=== PATIENT | female | born 1995 | race Caucasian/White ===

== ENCOUNTER 2025-03-28 07:52 | Inpatient (IN) ==
[2025-03-28] MEDS ORDERED: LIDOCAINE 1% LOCAL 20 ML VIAL INFIL PRN (07:59)
[2025-03-28] MEDS ORDERED: CALCIUM CARBONATE 500 MG CHEWABLE TAB PO PRN (07:59)
[2025-03-28] MEDS ORDERED: ACETAMINOPHEN 325 MG TAB PO PRN (07:59)
--- NOTE | 2025-03-28 08:41 | History & Physical Report ---
Date of Service March 28, 2025 Assessment & Plan (1) Chronic hypertension during , antepartum: Plan: 29-year-old G1, P0 currently at 38 weeks 2 days gestational age presents for induction of labor. Will start with oxytocin per regular protocol. Vitals within normal limits will continue to monitor. GBS negative. (2) Obesity affecting : (3) Supervision of normal first : (4) Pulmonary stenosis: Admission and Anticipated Discharge Date Admission Date: March 28, 2025 History of Present Illness Primary Care Provider: Flaco Roth 29-year-old G1, P0 currently at 38 weeks 2 days gestational age presents for induction of labor. plans and complicating factors: Patient with Pulmonary Stenosis [place]22-24 weeks[place] [facility] [place] [facility] 10[place] [facility] [place] *Maternal echo September-isolated pulmonary stenosis *cards states should not cause immediate problems in *recommend monitoring for swelling and BP; will follow with cards during *echo 02/22 stable. Hepatitis B Non Immune *Recommend Hepatitis B Vaccine Obesity (BMI 40 and higher @ beginning of ) (PER [facility]) *Baby ASA daily *Anatomy US at [facility] - f/u completed 12/21 *Growth US Q4wk @ 24wks lga at 32 weeks 35 weeks efw 83% *Baseline Preeclampsia labs and urine protein assessment *1st trimester 1hr gtt testing - passed *Twice Weekly NST's @ 34wks. CHTN-- Not on meds *Baby ASA daily start 12-28 wks, continue until delivery *wkly NST's @32wks and twice wkly @36 wks *Serial Growth US @ 24 (doppler only if abnml) *Baseline 24hr urine (additioinal PRN) *weekly JAIR's @ 32wk(If on Meds)) *Deliver [id number] (Not on Meds)--> IOL 03/28/25 OB Labs: Blood Type O Positive 09/10/24 Antibody Screen NEGATIVE 09/10/24 Hgb 15.1 g/dl (12.0-16.0) 03/07/25 Hct 42.4 % (37.0-47.0) 03/07/25 MCV 87.4 fL (80.0-100.0) 03/07/25 Plt Count 271 K/uL (130-400) 03/07/25 Rubella IgG Antibody Immune (Immune) 09/10/24 Treponema pallidum Ab Negative (Negative) 01/18/25 Hep Bs Antigen Negative (Negative) 09/10/24 Hepatitis C Antibody Negative (Negative) 09/10/24 HIV 1&2 Ab/P24 Ag 4thGn Negative (Negative) 09/10/24 Glucose 1 Hr 50 gm 142 mg/dl (70-130) H 01/18/25 Maternal Serum AFP 36.1 ng/mL 10/29/24 OB Optional Labs: Chlamydia trachomatis RNA Not Detected (NotDetected) 09/10/24 Neisseria gonorrhoeae RNA Not Detected (NotDetected) 09/10/24 Alpha Fetoprotein Triple Screen SEE NOTE 10/29/24 Labs Reviewed: Horizon 14-negative--mln cfdna-low risk--mln Allergies Allergy/AdvReac Type Severity Reaction Status Date / Time No Known Drug Allergies Allergy Unknown Verified 03/28/25 08:03 Home Medications Medication Instructions Recorded Confirmed Type PNV no.[id number] 1 tab PO HS 09/03/24 03/28/25 History [ Gummies] doxylamine succinate [Unisom 0.5 tab PO HS 09/03/24 03/28/25 History (doxylamine)] pyridoxine (vitamin B6) 25 mg PO HS 09/03/24 03/28/25 History aspirin 81 mg tablet 81 mg PO DAILY 02/22/25 03/28/25 History ferrous sulfate 137 mg (45 mg 137 mg PO DAILY 02/22/25 03/28/25 History iron) tablet,extended release Patient History Medical History (Updated 03/28/25 @ 08:40 by Jaleel Selby MD) Chronic hypertension no meds Nonimmune to hepatitis B virus Pulmonary stenosis congenital; stable sees cardiology Varicella vaccination Migraine with aura Surgical History S/P wisdom tooth extraction Family History Denies family history of Ovarian cancer Myocardial infarction Breast cancer Colorectal cancer Uterine cancer Social History (Updated 03/07/25 @ 21:37 by Avelina Hugo RN) Smoking Status: Never smoker Do You Dip or Chew Tobacco: No; Hx Alcohol Use: No Hx Substance Use: No Preferred Language: Korean Beliefs That Will Affect Care: None marital status: marital status details: Traci Verdugo (31) [phone] Current Living Situation: Spouse Current Living Situation Comment: lives with spouse, dogs, cats-pt to wear gloves/mask current occupational status: employed 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 Feels Safe at Home: Yes caffeine: Yes Seatbelt Use: always Physical Exam Genitourinary: normal external appearance OB Exam Abdomen: + vertex Manu al OB Exam: + cervical dilation 4 cm, + cervical effacement 70% and + station high OB Exam Monitor Tracing: + external FHT monitor used, + external uterine monitor used, + category I and + normal FHT variability Results & Data Vital Signs (Past 12 Hours) Vital Signs Pulse BP 03/28/25 08:01 94 H 137/81 Coding Level of Care Code None Diagnoses Chronic hypertension during , antepartum O10.919 Obesity affecting in third trimester, unspecified obesity type O99.213 Trimester: third trimester Obesity type affecting : unspecified obesity Encounter for supervision of normal first in third trimester Z34.03 Trimester: third trimester Nonrheumatic pulmonary valve stenosis I37.0 Cardiac valve disease etiology: nonrheumatic (2) Obesity affecting Trimester: third trimester Obesity type affecting : unspecified obesity Qualified Code(s): O99.213 - Obesity complicating , third trimester (3) Supervision of normal first Trimester: third trimester Qualified Code(s): Z34.03 - Encounter for supervision of normal first , third trimester (4) Pulmonary stenosis Cardiac valve disease etiology: nonrheumatic Qualified Code(s): I37.0 - Nonrheumatic pulmonary valve stenosis
[2025-03-28 08:42] LABS: Hematocrit (blood only) 41.7 % (37.0-47.0); Hemoglobin 14.9 g/dl (12.0-16.0); Mean Corpuscular Hemoglobin 31.4 pg (25.0-34.0); Mean Corpuscular Volume 87.8 fL (80.0-100.0); Platelet Count 241 K/uL (130-400); RDW Standard Deviation 39.2 fL (36.4-46.3); Red Blood Count 4.75 M/uL (4.20-5.40); White Blood Count 13.13 K/ul (4.8-10.8)
[2025-03-28] MEDS: LACTATED RINGER'S 1,000 ML IV PRN (08:45)
[2025-03-28] MEDS: OXYTOCIN 30 UNITS/NSS 30 UNITS/500 ML BAG IV PRN (08:54)
[2025-03-28] MEDS ORDERED: NALOXONE HCL 1 MG in SODIUM CHLORIDE 0.9% 1,000 ML IV PRN (16:55)
[2025-03-28] MEDS ORDERED: NALBUPHINE HCL INJ 10 MG/ML AMP IV PRN (16:55)
[2025-03-28] MEDS ORDERED: NALOXONE HCL 0.4 MG/1 ML VIAL/CARP IV PRN (16:55)
[2025-03-28] MEDS ORDERED: diphenhydrAMINE 50 MG/ML VIAL IV PRN (16:55)
[2025-03-28] MEDS ORDERED: LIDOCAINE 2% MPF LOCAL 5 ML VIAL EPI PRN (16:55)
[2025-03-28] MEDS ORDERED: SODIUM CHLORIDE 0.9% PF INJ 10 ML VIAL EPI PRN (16:55)
[2025-03-28] MEDS ORDERED: ROPIVACAINE 0.5% PF 5 MG/ML 20 ML VIAL EPI PRN (16:55)
[2025-03-28] MEDS ORDERED: BUPIVACAINE 0.25% PF 30 ML VIAL EPI PRN (16:55)
--- NOTE | 2025-03-28 16:57 | Anesthesiology Consultation ---
Date of Service March 28, 2025 Assessment & Plan (1) Encounter for pre-operative examination: Chart Review Chart Review: Patient NOT seen in Pre Admission Testing and Acceptable Risk for Labor Epidural Consults Requested none History Height/Weight Height: 5 ft 9 in Weight: 131.36 kg Allergies Allergy/AdvReac Type Severity Reaction Status Date / Time No Known Drug Allergies Allergy Unknown Verified 03/28/25 08:03 Medications Home Medications Medication Instructions Recorded Confirmed Last Taken PNV no.[id number] 1 tab PO HS 09/03/24 03/28/25 03/27/25 [ Gummies] doxylamine succinate [Unisom 0.5 tab PO HS 09/03/24 03/28/25 03/27/25 (doxylamine)] pyridoxine (vitamin B6) 25 mg PO HS 09/03/24 03/28/25 03/27/25 aspirin 81 mg tablet 81 mg PO DAILY 02/22/25 03/28/25 03/27/25 ferrous sulfate 137 mg (45 mg 137 mg PO DAILY 02/22/25 03/28/25 03/27/25 iron) tablet,extended release Active Medications Generic Name Dose Route Start Last Admin Trade Name Freq PRN Reason Stop Dose Admin Lactated Ringer's 1,000 mls @ 125 mls/hr 03/28/25 07:59 03/28/25 17:13 Lr IV 03/30/25 07:58 Infused .Q8H PRN Infusion L&D Protocol Protocol Oxytocin 30 units in 500 mls @ 17 mls/hr 03/28/25 08:01 03/28/25 15:35 Pitocin 30 Units/Nss IV 03/30/25 08:00 1.14 units/hr .Q24H PRN 19 mls/hr Labor Induction/Augmentation Titration Protocol 1.02 UNITS/HR Past Medical History Medical History (Updated 03/28/25 @ 16:57 by Zach Cody MD) Encounter for pre-operative examination Chronic hypertension no meds 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 see cards note Exercise / Class Metabolic Activity II 4-5 Yardwork/Stairs/Walk up hill Past Family History Family History Denies family history of Ovarian cancer Myocardial infarction Breast cancer Colorectal cancer Uterine cancer Past Surgical History Surgical History S/P wisdom tooth extraction Past Anesthesia History No Hx of Anesthesia Complications and No Family Hx of Anesthesia Complications History of PONV No Hx of PONV and No Hx of Motion Sickness Social History Smoking Status: Never smoker Do You Dip or Chew Tobacco: No Hx Alcohol Use: No Hx Substance Use: No substance use type: does not use Physical Exam Vital Signs Last Vital Signs Temp 37.0 C 03/28/25 12:19 Pulse 86 03/28/25 17:17 Resp 18 03/28/25 15:45 BP 147/84 H 03/28/25 17:17 Pulse Ox 98 03/28/25 17:17 Testing Laboratory Results 03/28/25 08:10
[2025-03-28] MEDS: BUPIVACAINE 0.25% PF 30 ML VIAL EPI STA (17:15)
[2025-03-28] MEDS: SODIUM CHLORIDE 0.9% PF INJ 10 ML VIAL EPI STA (17:16)
[2025-03-28] MEDS: LIDOCAINE 2%/EPINEPHRINE 1:200,000 20 ML PF EPI STA (17:19)
[2025-03-28] MEDS: fentANYL 2 MCG/ML BUPIVacaine 0.125%-NSS 100ML BAG ONE (17:20)
[2025-03-28] MEDS: SODIUM CHLORIDE 0.9% PF INJ 10 ML VIAL ONE (17:20)
[2025-03-28] MEDS: BUPIVACAINE 0.25% PF 30 ML VIAL ONE (17:20)
[2025-03-28] MEDS: LIDOCAINE 2%/EPINEPHRINE 1:200,000 20 ML PF ONE (17:20)
[2025-03-28] MEDS: fentANYL 2 MCG/ML BUPIVacaine 0.125%-NSS 100ML BAG EPI PRN (17:23)
--- NOTE | 2025-03-29 01:15 | Communication Note ---
Date of Service: March 29, 2025 Pitocin restarted for receptor saturation as we reached 20 milliunits heart rate category 1
--- NOTE | 2025-03-29 04:48 | Communication Note ---
Date of Service: March 29, 2025 Around midnight nurse noticed adhesive pad around epidural was bloody. I replaced opsite and no active bleeding seen at epidural insertion site. rechecked at 5am and small amount of blood seen under opsite. pt has not had cervical check in quite some time so unsure of pt progress with labor. epidural working well. pt denied any history of bleeding disorder and platelets normal. will continue to monitor but if prolonged labor discussed possibility of replacing epidural at new level.
--- NOTE | 2025-03-29 07:21 | Labor Progress Brief Note ---
Date of Service March 29, 2025 Patient 4-5 centimeters artificial rupture membranes for clear fluid Pitocin was stopped and restarted for saturation resent patient comfortable although feeling nausea discussed slow progress however I do not think she has been adequate labor yet continue induction process Assessment & Plan Admission and Anticipated Discharge Date Admission Date: March 28, 2025 Results & Data Vital Signs (Past 12 Hours) Vital Signs Temp Pulse Resp BP Pulse Ox 03/29/25 07:17 86 136/80 96 03/29/25 07:12 88 95 03/29/25 07:07 96 H 99 03/29/25 07:02 95 03/29/25 07:02 91 H 03/29/25 07:02 89 139/83 03/29/25 06:57 85 95 03/29/25 06:52 97 H 95 03/29/25 06:47 90 138/78 94 03/29/25 06:42 97 H 94 03/29/25 06:37 98 H 95 03/29/25 06:32 96 03/29/25 06:32 91 H 03/29/25 06:32 94 H 142/83 H 03/29/25 06:30 18 03/29/25 06:30 18 03/29/25 06:27 103 H 96 03/29/25 06:22 86 95 03/29/25 06:17 90 144/87 H 97 03/29/25 06:12 97 H 96 03/29/25 06:07 89 96 03/29/25 06:02 96 03/29/25 06:02 75 03/29/25 06:02 74 159/81 H 03/29/25 05:57 83 96 03/29/25 05:52 96 H 96 03/29/25 05:47 101 H 143/76 H 96 03/29/25 05:42 66 95 03/29/25 05:37 70 96 03/29/25 05:32 97 03/29/25 05:32 89 03/29/25 05:32 86 151/88 H 03/29/25 05:30 18 03/29/25 05:30 18 03/29/25 05:27 73 95 03/29/25 05:22 69 96 03/29/25 05:18 68 161/80 H 03/29/25 05:17 69 96 03/29/25 05:12 90 97 03/29/25 05:07 73 97 03/29/25 05:02 68 98 03/29/25 05:00 18 03/29/25 05:00 18 03/29/25 04:57 73 95 03/29/25 04:52 73 96 03/29/25 04:48 70 156/84 H 03/29/25 04:47 71 98 03/29/25 04:42 79 98 03/29/25 04:37 75 98 03/29/25 04:32 90 138/71 98 03/29/25 04:30 16 03/29/25 04:30 16 03/29/25 04:27 67 93 03/29/25 04:22 62 94 03/29/25 04:17 95 03/29/25 04:17 59 L 03/29/25 04:17 63 139/71 03/29/25 04:12 65 95 03/29/25 04:07 66 95 03/29/25 04:02 78 146/75 H 96 03/29/25 03:57 76 94 03/29/25 03:52 77 98 03/29/25 03:47 96 03/29/25 03:47 72 03/29/25 03:47 75 150/79 H 03/29/25 03:42 71 96 03/29/25 03:37 65 94 03/29/25 03:32 95 03/29/25 03:32 70 03/29/25 03:32 68 156/81 H 03/29/25 03:30 98.1 F 03/29/25 03:27 94 H 97 03/29/25 03:22 72 94 03/29/25 03:17 95 03/29/25 03:17 73 03/29/25 03:17 74 142/85 H 03/29/25 03:12 69 96 03/29/25 03:07 76 96 03/29/25 03:02 96 03/29/25 03:02 72 03/29/25 03:02 69 153/82 H 03/29/25 03:00 16 03/29/25 03:00 16 03/29/25 02:57 71 95 03/29/25 02:52 75 94 03/29/25 02:47 95 03/29/25 02:47 81 03/29/25 02:47 77 149/81 H 07/22/25 02:42 82 94 03/29/25 02:37 89 95 03/29/25 02:32 94 03/29/25 02:32 93 H 03/29/25 02:32 78 156/89 H 03/29/25 02:27 87 94 03/29/25 02:22 92 H 95 03/29/25 02:17 88 138/78 96 03/29/25 02:12 90 95 03/29/25 02:07 90 96 03/29/25 02:02 96 03/29/25 02:02 91 H 03/29/25 02:02 77 148/79 H 03/29/25 02:00 18 03/29/25 02:00 18 03/29/25 01:57 92 H 97 03/29/25 01:52 90 98 03/29/25 01:47 84 146/88 H 98 03/29/25 01:42 87 99 03/29/25 01:37 71 97 03/29/25 01:32 95 03/29/25 01:32 69 03/29/25 01:32 68 148/75 H 03/29/25 01:30 18 03/29/25 01:30 18 03/29/25 01:27 72 97 03/29/25 01:22 67 96 03/29/25 01:17 67 145/80 H 97 03/29/25 01:12 65 95 03/29/25 01:07 71 94 03/29/25 01:02 99 H 98 03/29/25 01:00 18 03/29/25 01:00 18 03/29/25 00:57 88 97 03/29/25 00:52 77 95 03/29/25 00:47 81 113/63 98 03/29/25 00:42 82 98 03/29/25 00:37 83 98 03/29/25 00:34 94 H 128/87 03/29/25 00:32 84 149/102 H 99 03/29/25 00:27 68 98 03/29/25 00:22 69 97 03/29/25 00:18 66 127/65 03/29/25 00:17 68 99 03/29/25 00:12 72 99 03/29/25 00:07 85 98 03/29/25 00:03 83 80 L 03/29/25 00:02 83 137/70 87 L 03/28/25 23:57 80 99 03/28/25 23:54 77 83 L 03/28/25 23:52 80 87 L 03/28/25 23:47 100 03/28/25 23:47 74 03/28/25 23:47 80 127/74 03/28/25 23:44 97 H 85 L 03/28/25 23:42 74 100 03/28/25 23:37 76 96 03/28/25 23:32 64 135/96 100 03/28/25 23:31 71 83 L 03/28/25 23:30 18 03/28/25 23:30 98.2 F 18 03/28/25 23:27 56 L 100 03/28/25 23:22 61 99 03/28/25 23:17 58 L 134/64 100 03/28/25 23:12 56 L 100 03/28/25 23:07 59 L 100 03/28/25 23:05 62 86 L 03/28/25 23:02 69 128/65 100 03/28/25 23:00 18 03/28/25 23:00 18 03/28/25 22:57 61 100 03/28/25 22:52 70 100 03/28/25 22:48 64 128/68 03/28/25 22:47 62 96 03/28/25 22:42 95 03/28/25 22:42 75 03/28/25 22:42 75 88 L 03/28/25 22:37 71 100 03/28/25 22:33 59 L 147/81 H 03/28/25 22:32 58 L 100 03/28/25 22:30 18 03/28/25 22:30 18 03/28/25 22:27 59 L 100 03/28/25 22:22 60 100 03/28/25 22:21 61 90 03/28/25 22:17 100 03/28/25 22:17 63 03/28/25 22:17 61 147/79 H 03/28/25 22:16 61 89 L 03/28/25 22:12 60 100 03/28/25 22:07 59 L 100 03/28/25 22:03 60 155/83 H 03/28/25 22:02 61 100 03/28/25 22:00 18 03/28/25 22:00 18 03/28/25 21:57 59 L 100 03/28/25 21:52 59 L 100 03/28/25 21:48 66 154/72 H 91 03/28/25 21:47 66 100 03/28/25 21:43 80 91 03/28/25 21:42 78 100 03/28/25 21:37 72 100 03/28/25 21:33 67 131/71 03/28/25 21:32 65 100 03/28/25 21:30 18 03/28/25 21:30 18 03/28/25 21:27 76 100 03/28/25 21:26 72 91 03/28/25 21:22 72 100 03/28/25 21:20 74 93 03/28/25 21:17 80 124/77 100 03/28/25 21:12 71 100 03/28/25 21:11 70 86 L 03/28/25 21:07 86 82 L 03/28/25 21:06 78 86 L 03/28/25 21:02 83 L 03/28/25 21:02 86 03/28/25 21:02 85 119/69 03/28/25 21:00 18 03/28/25 21:00 18 03/28/25 20:57 82 99 03/28/25 20:55 75 93 03/28/25 20:52 78 92 03/28/25 20:50 74 92 03/28/25 20:47 79 L 03/28/25 20:47 80 03/28/25 20:47 79 133/74 03/28/25 20:45 80 87 L 03/28/25 20:42 80 100 03/28/25 20:37 81 83 L 03/28/25 20:36 77 91 03/28/25 20:33 74 133/78 03/28/25 20:32 72 100 03/28/25 20:27 80 L 03/28/25 20:27 88 03/28/25 20:27 88 83 L 03/28/25 20:22 71 93 03/28/25 20:21 67 90 03/28/25 20:17 70 143/85 H 100 03/28/25 20:12 71 100 03/28/25 20:08 71 80 L 03/28/25 20:07 71 98 03/28/25 20:02 100 03/28/25 20:02 68 03/28/25 20:02 73 137/74 03/28/25 20:00 18 03/28/25 20:00 18 03/28/25 19:57 79 100 03/28/25 19:52 69 100 03/28/25 19:47 70 L 03/28/25 19:47 77 03/28/25 19:47 74 139/76 03/28/25 19:46 74 86 L 03/28/25 19:42 74 100 03/28/25 19:37 77 100 03/28/25 19:36 88 94 03/28/25 19:32 77 145/77 H 100 03/28/25 19:30 18 03/28/25 19:30 18 03/28/25 19:29 91 H 91 03/28/25 19:27 96 H 100 03/28/25 19:22 91 H 95 Coding Level of Care Code None
--- NOTE | 2025-03-29 08:50 | Labor Progress Brief Note ---
Date of Service March 29, 2025 Subjective no complaints. no pain. no osborn, no visual change. Assessment & Plan (1) Encounter for induction of labor: (2) Chronic hypertension during , antepartum: Plan no significant progress, s/p arom, suspect inadeq labor pattern, iupc placed, pit max increased, titrate pit to adeq MVUs. reeval when appropriate. bps as noted. fhts categ 1. pt aware i am taking over care. Admission and Anticipated Discharge Date Admission Date: March 28, 2025 Physical Exam Constitutional: WD/WN, vitals as above Genitourinary: Manual OB Exam: + cervical dilation 4 cm, + cervical effacement 50% and + station -2 OB Exam Monitor Tracing: + external FHT monitor used, + external uterine monitor used (q2), + intra-uterine pressure catheter used (placed now), + category I and + normal FHT variability Results & Data Vital Signs (Past 12 Hours) Vital Signs Temp Pulse Resp BP Pulse Ox 03/29/25 08:42 103 H 98 03/29/25 08:37 88 98 03/29/25 08:33 83 122/81 03/29/25 08:32 91 H 98 03/29/25 08:27 82 98 03/29/25 08:22 93 H 98 03/29/25 08:17 95 03/29/25 08:17 80 03/29/25 08:17 78 127/61 03/29/25 08:12 85 96 03/29/25 08:07 83 96 03/29/25 08:03 75 123/68 03/29/25 08:02 79 96 03/29/25 07:57 85 95 03/29/25 07:52 74 95 03/29/25 07:47 94 03/29/25 07:47 80 03/29/25 07:47 78 122/65 03/29/25 07:42 82 95 03/29/25 07:37 90 95 03/29/25 07:32 89 131/86 95 03/29/25 07:27 85 94 03/29/25 07:22 91 H 95 03/29/25 07:17 86 136/80 96 03/29/25 07:12 88 95 03/29/25 07:07 96 H 99 03/29/25 07:02 95 03/29/25 07:02 91 H 03/29/25 07:02 89 139/83 03/29/25 07:00 18 03/29/25 07:00 98.1 F 18 03/29/25 06:57 85 95 03/29/25 06:52 97 H 95 03/29/25 06:47 90 138/78 94 03/29/25 06:42 97 H 94 03/29/25 06:37 98 H 95 03/29/25 06:32 96 03/29/25 06:32 91 H 03/29/25 06:32 94 H 142/83 H 03/29/25 06:30 18 03/29/25 06:30 18 03/29/25 06:27 103 H 96 03/29/25 06:22 86 95 03/29/25 06:17 90 144/87 H 97 03/29/25 06:12 97 H 96 03/29/25 06:07 89 96 03/29/25 06:02 96 03/29/25 06:02 75 03/29/25 06:02 74 159/81 H 03/29/25 05:57 83 96 03/29/25 05:52 96 H 96 03/29/25 05:47 101 H 143/76 H 96 03/29/25 05:42 66 95 03/29/25 05:37 70 96 03/29/25 05:32 97 03/29/25 05:32 89 03/29/25 05:32 86 151/88 H 03/29/25 05:30 18 03/29/25 05:30 18 03/29/25 05:27 73 95 03/29/25 05:22 69 96 03/29/25 05:18 68 161/80 H 03/29/25 05:17 69 96 03/29/25 05:12 90 97 03/29/25 05:07 73 97 03/29/25 05:02 68 98 03/29/25 05:00 18 03/29/25 05:00 18 03/29/25 04:57 73 95 03/29/25 04:52 73 96 03/29/25 04:48 70 156/84 H 03/29/25 04:47 71 98 03/29/25 04:42 79 98 03/29/25 04:37 75 98 03/29/25 04:32 90 138/71 98 07/22/25 04:30 16 03/29/25 04:30 16 03/29/25 04:27 67 93 03/29/25 04:22 62 94 03/29/25 04:17 95 03/29/25 04:17 59 L 03/29/25 04:17 63 139/71 03/29/25 04:12 65 95 03/29/25 04:07 66 95 03/29/25 04:02 78 146/75 H 96 03/29/25 03:57 76 94 03/29/25 03:52 77 98 03/29/25 03:47 96 03/29/25 03:47 72 03/29/25 03:47 75 150/79 H 03/29/25 03:42 71 96 03/29/25 03:37 65 94 03/29/25 03:32 95 03/29/25 03:32 70 03/29/25 03:32 68 156/81 H 03/29/25 03:30 98.1 F 03/29/25 03:27 94 H 97 03/29/25 03:22 72 94 03/29/25 03:17 95 03/29/25 03:17 73 03/29/25 03:17 74 142/85 H 03/29/25 03:12 69 96 03/29/25 03:07 76 96 03/29/25 03:02 96 03/29/25 03:02 72 03/29/25 03:02 69 153/82 H 03/29/25 03:00 16 03/29/25 03:00 16 03/29/25 02:57 71 95 03/29/25 02:52 75 94 03/29/25 02:47 95 03/29/25 02:47 81 03/29/25 02:47 77 149/81 H 03/29/25 02:42 82 94 03/29/25 02:37 89 95 03/29/25 02:32 94 03/29/25 02:32 93 H 03/29/25 02:32 78 156/89 H 03/29/25 02:27 87 94 03/29/25 02:22 92 H 95 03/29/25 02:17 88 138/78 96 03/29/25 02:12 90 95 03/29/25 02:07 90 96 03/29/25 02:02 96 03/29/25 02:02 91 H 03/29/25 02:02 77 148/79 H 03/29/25 02:00 18 03/29/25 02:00 18 03/29/25 01:57 92 H 97 03/29/25 01:52 90 98 03/29/25 01:47 84 146/88 H 98 03/29/25 01:42 87 99 03/29/25 01:37 71 97 03/29/25 01:32 95 03/29/25 01:32 69 03/29/25 01:32 68 148/75 H 03/29/25 01:30 18 03/29/25 01:30 18 03/29/25 01:27 72 97 03/29/25 01:22 67 96 03/29/25 01:17 67 145/80 H 97 03/29/25 01:12 65 95 03/29/25 01:07 71 94 03/29/25 01:02 99 H 98 03/29/25 01:00 18 03/29/25 01:00 18 03/29/25 00:57 88 97 03/29/25 00:52 77 95 03/29/25 00:47 81 113/63 98 03/29/25 00:42 82 98 03/29/25 00:37 83 98 03/29/25 00:34 94 H 128/87 03/29/25 00:32 84 149/102 H 99 03/29/25 00:27 68 98 03/29/25 00:22 69 97 03/29/25 00:18 66 127/65 03/29/25 00:17 68 99 03/29/25 00:12 72 99 03/29/25 00:07 85 98 03/29/25 00:03 83 80 L 03/29/25 00:02 83 137/70 87 L 03/28/25 23:57 80 99 03/28/25 23:54 77 83 L 03/28/25 23:52 80 87 L 03/28/25 23:47 100 03/28/25 23:47 74 03/28/25 23:47 80 127/74 03/28/25 23:44 97 H 85 L 03/28/25 23:42 74 100 03/28/25 23:37 76 96 03/28/25 23:32 64 135/96 100 03/28/25 23:31 71 83 L 03/28/25 23:30 18 03/28/25 23:30 98.2 F 18 03/28/25 23:27 56 L 100 03/28/25 23:22 61 99 03/28/25 23:17 58 L 134/64 100 03/28/25 23:12 56 L 100 03/28/25 23:07 59 L 100 03/28/25 23:05 62 86 L 03/28/25 23:02 69 128/65 100 03/28/25 23:00 18 03/28/25 23:00 18 03/28/25 22:57 61 100 03/28/25 22:52 70 100 03/28/25 22:48 64 128/68 03/28/25 22:47 62 96 03/28/25 22:42 95 03/28/25 22:42 75 03/28/25 22:42 75 88 L 03/28/25 22:37 71 100 03/28/25 22:33 59 L 147/81 H 03/28/25 22:32 58 L 100 03/28/25 22:30 18 03/28/25 22:30 18 03/28/25 22:27 59 L 100 03/28/25 22:22 60 100 03/28/25 22:21 61 90 03/28/25 22:17 100 03/28/25 22:17 63 03/28/25 22:17 61 147/79 H 03/28/25 22:16 61 89 L 03/28/25 22:12 60 100 03/28/25 22:07 59 L 100 03/28/25 22:03 60 155/83 H 03/28/25 22:02 61 100 03/28/25 22:00 18 03/28/25 22:00 18 03/28/25 21:57 59 L 100 03/28/25 21:52 59 L 100 03/28/25 21:48 66 154/72 H 91 03/28/25 21:47 66 100 03/28/25 21:43 80 91 03/28/25 21:42 78 100 03/28/25 21:37 72 100 03/28/25 21:33 67 131/71 03/28/25 21:32 65 100 03/28/25 21:30 18 03/28/25 21:30 18 03/28/25 21:27 76 100 03/28/25 21:26 72 91 03/28/25 21:22 72 100 03/28/25 21:20 74 93 03/28/25 21:17 80 124/77 100 03/28/25 21:12 71 100 03/28/25 21:11 70 86 L 03/28/25 21:07 86 82 L 03/28/25 21:06 78 86 L 03/28/25 21:02 83 L 03/28/25 21:02 86 03/28/25 21:02 85 119/69 03/28/25 21:00 18 03/28/25 21:00 18 03/28/25 20:57 82 99 03/28/25 20:55 75 93 03/28/25 20:52 78 92 03/28/25 20:50 74 92 Coding Level of Care Code None Diagnoses Encounter for induction of labor Z34.90 Chronic hypertension during , antepartum O10.919
[2025-03-29] MEDS: ONDANSETRON INJ 2 MG/ML 2 ML VIAL IV PRN (09:04)
--- NOTE | 2025-03-29 13:21 | Labor Progress Brief Note ---
Date of Service March 29, 2025 Subjective pt comfortable. Assessment & Plan (1) Encounter for induction of labor: (2) Chronic hypertension during , antepartum: (3) Obesity affecting : Trimester: third trimester Obesity type affecting : unspecified obesity Qualified Code(s): O99.213 - Obesity complicating , third trimester Plan good cx change. iupc in place, mvu's intermittently adequate. fhts categ 1. pit at 30. will plan recheck of cx in 2hr, bc if cx changing would not use more pitocin but if not, will consider changing pit parameters. reviewed all with couple and they verbalized understanding. Admission and Anticipated Discharge Date Admission Date: March 28, 2025 Physical Exam Constitutional: WD/WN, vitals as above Genitourinary: Manual OB Exam: + cervical dilation 5 cm, + cervical effacement 90% and + station -1 OB Exam Monitor Tracing: + external FHT monitor used, + intra-uterine pressure catheter used (mvu's intermittently adequate), + category I and + normal FHT variability Results & Data Vital Signs (Past 12 Hours) Vital Signs Temp Pulse Resp BP Pulse Ox 03/29/25 13:12 84 98 03/29/25 13:07 79 95 03/29/25 13:02 84 97 03/29/25 12:57 103 H 98 03/29/25 12:52 90 96 03/29/25 12:48 90 120/73 03/29/25 12:47 87 95 03/29/25 12:42 87 96 03/29/25 12:37 91 H 96 03/29/25 12:32 91 H 129/77 97 03/29/25 12:30 16 03/29/25 12:30 16 03/29/25 12:27 81 96 03/29/25 12:22 97 H 97 03/29/25 12:18 82 135/80 03/29/25 12:17 88 98 03/29/25 12:12 73 97 03/29/25 12:07 70 96 03/29/25 12:03 74 146/78 H 03/29/25 12:02 71 99 03/29/25 12:00 18 03/29/25 12:00 18 03/29/25 11:57 81 97 03/29/25 11:52 76 96 03/29/25 11:47 78 138/79 97 03/29/25 11:42 67 98 03/29/25 11:37 70 100 03/29/25 11:32 81 139/73 97 03/29/25 11:30 20 03/29/25 11:30 20 03/29/25 11:27 68 98 03/29/25 11:22 68 100 03/29/25 11:17 76 145/81 H 100 03/29/25 11:12 71 100 03/29/25 11:07 69 100 03/29/25 11:02 100 03/29/25 11:02 80 03/29/25 11:02 86 132/73 03/29/25 11:00 18 03/29/25 11:00 98.2 F 18 03/29/25 10:57 69 100 03/29/25 10:52 80 100 03/29/25 10:47 100 03/29/25 10:47 72 03/29/25 10:47 76 125/62 03/29/25 10:42 74 100 03/29/25 10:37 71 100 03/29/25 10:33 67 126/61 03/29/25 10:32 68 100 03/29/25 10:27 70 100 03/29/25 10:22 70 100 03/29/25 10:17 70 138/67 100 03/29/25 10:12 69 99 03/29/25 10:07 63 96 03/29/25 10:03 57 L 127/59 L 03/29/25 10:02 66 98 03/29/25 09:57 64 97 03/29/25 09:52 69 97 03/29/25 09:47 98 03/29/25 09:47 71 03/29/25 09:47 66 121/67 03/29/25 09:42 65 99 03/29/25 09:37 69 98 03/29/25 09:33 81 124/87 03/29/25 09:32 85 97 03/29/25 09:30 18 03/29/25 09:30 98.2 F 18 03/29/25 09:27 58 L 96 03/29/25 09:22 62 97 03/29/25 09:17 96 03/29/25 09:17 62 03/29/25 09:17 61 145/74 H 03/29/25 09:12 63 96 03/29/25 09:07 66 98 03/29/25 09:02 64 161/82 H 97 03/29/25 09:00 18 03/29/25 09:00 18 03/29/25 09:00 18 03/29/25 09:00 18 03/29/25 08:57 66 97 03/29/25 08:52 63 96 03/29/25 08:49 74 149/83 H 03/29/25 08:47 69 97 03/29/25 08:42 103 H 98 03/29/25 08:37 88 98 03/29/25 08:33 83 122/81 03/29/25 08:32 91 H 98 03/29/25 08:27 82 98 03/29/25 08:22 93 H 98 03/29/25 08:17 95 03/29/25 08:17 80 03/29/25 08:17 78 127/61 03/29/25 08:12 85 96 03/29/25 08:07 83 96 03/29/25 08:03 75 123/68 03/29/25 08:02 79 96 03/29/25 07:57 85 95 03/29/25 07:52 74 95 03/29/25 07:47 94 03/29/25 07:47 80 03/29/25 07:47 78 122/65 03/29/25 07:42 82 95 03/29/25 07:37 90 95 03/29/25 07:32 89 131/86 95 03/29/25 07:27 85 94 03/29/25 07:22 91 H 95 03/29/25 07:17 86 136/80 96 03/29/25 07:12 88 95 03/29/25 07:07 96 H 99 03/29/25 07:02 95 03/29/25 07:02 91 H 03/29/25 07:02 89 139/83 03/29/25 07:00 18 03/29/25 07:00 98.1 F 18 03/29/25 06:57 85 95 03/29/25 06:52 97 H 95 03/29/25 06:47 90 138/78 94 03/29/25 06:42 97 H 94 03/29/25 06:37 98 H 95 03/29/25 06:32 96 03/29/25 06:32 91 H 03/29/25 06:32 94 H 142/83 H 03/29/25 06:30 18 03/29/25 06:30 18 03/29/25 06:27 103 H 96 03/29/25 06:22 86 95 03/29/25 06:17 90 144/87 H 97 03/29/25 06:12 97 H 96 03/29/25 06:07 89 96 03/29/25 06:02 96 03/29/25 06:02 75 03/29/25 06:02 74 159/81 H 03/29/25 05:57 83 96 03/29/25 05:52 96 H 96 03/29/25 05:47 101 H 143/76 H 96 03/29/25 05:42 66 95 03/29/25 05:37 70 96 03/29/25 05:32 97 03/29/25 05:32 89 03/29/25 05:32 86 151/88 H 03/29/25 05:30 18 03/29/25 05:30 18 03/29/25 05:27 73 95 03/29/25 05:22 69 96 03/29/25 05:18 68 161/80 H 03/29/25 05:17 69 96 03/29/25 05:12 90 97 03/29/25 05:07 73 97 03/29/25 05:02 68 98 03/29/25 05:00 18 03/29/25 05:00 18 03/29/25 04:57 73 95 03/29/25 04:52 73 96 03/29/25 04:48 70 156/84 H 03/29/25 04:47 71 98 03/29/25 04:42 79 98 03/29/25 04:37 75 98 03/29/25 04:32 90 138/71 98 03/29/25 04:30 16 03/29/25 04:30 16 03/29/25 04:27 67 93 03/29/25 04:22 62 94 03/29/25 04:17 95 03/29/25 04:17 59 L 03/29/25 04:17 63 139/71 03/29/25 04:12 65 95 03/29/25 04:07 66 95 03/29/25 04:02 78 146/75 H 96 03/29/25 03:57 76 94 03/29/25 03:52 77 98 03/29/25 03:47 96 03/29/25 03:47 72 03/29/25 03:47 75 150/79 H 03/29/25 03:42 71 96 03/29/25 03:37 65 94 03/29/25 03:32 95 03/29/25 03:32 70 03/29/25 03:32 68 156/81 H 03/29/25 03:30 98.1 F 03/29/25 03:27 94 H 97 03/29/25 03:22 72 94 03/29/25 03:17 95 03/29/25 03:17 73 03/29/25 03:17 74 142/85 H 03/29/25 03:12 69 96 03/29/25 03:07 76 96 03/29/25 03:02 96 03/29/25 03:02 72 03/29/25 03:02 69 153/82 H 03/29/25 03:00 16 03/29/25 03:00 16 03/29/25 02:57 71 95 03/29/25 02:52 75 94 03/29/25 02:47 95 03/29/25 02:47 81 03/29/25 02:47 77 149/81 H 03/29/25 02:42 82 94 03/29/25 02:37 89 95 03/29/25 02:32 94 03/29/25 02:32 93 H 03/29/25 02:32 78 156/89 H 03/29/25 02:27 87 94 03/29/25 02:22 92 H 95 03/29/25 02:17 88 138/78 96 03/29/25 02:12 90 95 03/29/25 02:07 90 96 03/29/25 02:02 96 03/29/25 02:02 91 H 03/29/25 02:02 77 148/79 H 03/29/25 02:00 18 03/29/25 02:00 18 03/29/25 01:57 92 H 97 03/29/25 01:52 90 98 03/29/25 01:47 84 146/88 H 98 03/29/25 01:42 87 99 03/29/25 01:37 71 97 03/29/25 01:32 95 03/29/25 01:32 69 03/29/25 01:32 68 148/75 H 03/29/25 01:30 18 03/29/25 01:30 18 03/29/25 01:27 72 97 03/29/25 01:22 67 96 Coding Level of Care Code None Diagnoses Encounter for induction of labor Z34.90 Chronic hypertension during , antepartum O10.919 Obesity affecting in third trimester, unspecified obesity type O99.213 Trimester: third trimester Obesity type affecting : unspecified obesity
[2025-03-29] MEDS ORDERED: ROPIVACAINE 0.5% 5 MG/ML 30 ML VIAL ONE (14:29)
[2025-03-29] MEDS ORDERED: LIDOCAINE 2%/EPINEPHRINE 1:200,000 20 ML PF ONE (14:29)
--- NOTE | 2025-03-29 14:34 | Anesthesia Procedure Note ---
Date of Service March 29, 2025 Anesthesia Epidural Re-Dose Vital Signs Temp Pulse Resp BP Pulse Ox O2 Del Method 36.9 C 71 18 147/84 H 97 Room Air 03/29/25 13:00 03/29/25 14:27 03/29/25 14:00 03/29/25 14:21 03/29/25 14:27 03/28/25 19:04 Notes Pain Intensity: 6 Dilatation (cm): 5.0 Effacement (%): 90 Called by nursing to evaluate epidural as the patient is having increased pain. The epidural was re-dosed with the following medications (all medications via epidural route) after negative aspiration of the epidural catheter for CSF/HEME 1.2% lidocaine and 0.2% ropivacaine 6ml After Epidural Re-Dose Mental Status: alert / awake / arousable Pain: improving with treatment Airway Patency, RR, SpO2: stable & adequate BP & HR: stable & adequate
--- NOTE | 2025-03-29 15:28 | Labor Progress Brief Note ---
Date of Service March 29, 2025 Subjective pt was feeling more cramps and was seen by anesth for better pain control and says its helping. Assessment & Plan (1) Encounter for induction of labor: (2) Chronic hypertension during , antepartum: (3) Obesity affecting : Trimester: third trimester Obesity type affecting : unspecified obesity Qualified Code(s): O99.213 - Obesity complicating , third trimester Plan good cx change. fhts categ 1. c/w pit, mvu's have been adequate. Admission and Anticipated Discharge Date Admission Date: March 28, 2025 Physical Exam Constitutional: WD/WN, vitals as above Genitourinary: Manual OB Exam: + cervical dilation 8 cm, + cervical effacement 100% and + station 0 OB Exam Monitor Tracing: + external FHT monitor used, + intra-uterine pressure catheter used (mvu's adequate ), + category I and + normal FHT variability Results & Data Vital Signs (Past 12 Hours) Vital Signs Temp Pulse Resp BP Pulse Ox 03/29/25 15:22 111 H 94 03/29/25 15:17 119 H 94 03/29/25 15:14 79 146/80 H 03/29/25 15:12 74 93 03/29/25 15:07 84 94 03/29/25 15:02 75 94 03/29/25 15:00 86 18 135/89 03/29/25 14:57 79 94 03/29/25 14:52 69 94 03/29/25 14:47 78 94 03/29/25 14:42 93 H 94 03/29/25 14:37 72 142/75 H 96 03/29/25 14:34 75 159/88 H 03/29/25 14:32 92 H 100 03/29/25 14:30 18 03/29/25 14:30 18 03/29/25 14:27 71 97 03/29/25 14:22 73 96 03/29/25 14:21 68 147/84 H 03/29/25 14:17 73 99 03/29/25 14:12 73 97 03/29/25 14:07 83 99 03/29/25 14:02 99 H 100 03/29/25 14:00 18 03/29/25 14:00 18 03/29/25 13:57 76 100 03/29/25 13:52 75 98 07/22/25 13:51 76 138/69 03/29/25 13:47 74 100 03/29/25 13:42 77 96 03/29/25 13:37 74 97 03/29/25 13:32 72 97 03/29/25 13:30 16 03/29/25 13:30 16 03/29/25 13:27 72 98 03/29/25 13:22 74 97 03/29/25 13:19 72 136/65 03/29/25 13:17 90 95 03/29/25 13:12 84 98 03/29/25 13:07 79 95 03/29/25 13:02 84 97 03/29/25 13:00 18 03/29/25 13:00 98.4 F 18 03/29/25 12:57 103 H 98 03/29/25 12:52 90 96 03/29/25 12:48 90 120/73 03/29/25 12:47 87 95 03/29/25 12:42 87 96 03/29/25 12:37 91 H 96 03/29/25 12:32 91 H 129/77 97 03/29/25 12:30 16 03/29/25 12:30 16 03/29/25 12:27 81 96 03/29/25 12:22 97 H 97 03/29/25 12:18 82 135/80 03/29/25 12:17 88 98 03/29/25 12:12 73 97 03/29/25 12:07 70 96 03/29/25 12:03 74 146/78 H 03/29/25 12:02 71 99 03/29/25 12:00 18 03/29/25 12:00 18 03/29/25 11:57 81 97 03/29/25 11:52 76 96 03/29/25 11:47 78 138/79 97 03/29/25 11:42 67 98 03/29/25 11:37 70 100 03/29/25 11:32 81 139/73 97 03/29/25 11:30 20 03/29/25 11:30 20 03/29/25 11:27 68 98 03/29/25 11:22 68 100 03/29/25 11:17 76 145/81 H 100 03/29/25 11:12 71 100 03/29/25 11:07 69 100 03/29/25 11:02 100 03/29/25 11:02 80 03/29/25 11:02 86 132/73 03/29/25 11:00 18 03/29/25 11:00 98.2 F 18 03/29/25 10:57 69 100 03/29/25 10:52 80 100 03/29/25 10:47 100 03/29/25 10:47 72 03/29/25 10:47 76 125/62 03/29/25 10:42 74 100 03/29/25 10:37 71 100 03/29/25 10:33 67 126/61 03/29/25 10:32 68 100 03/29/25 10:27 70 100 03/29/25 10:22 70 100 03/29/25 10:17 70 138/67 100 03/29/25 10:12 69 99 03/29/25 10:07 63 96 03/29/25 10:03 57 L 127/59 L 03/29/25 10:02 66 98 03/29/25 09:57 64 97 03/29/25 09:52 69 97 03/29/25 09:47 98 03/29/25 09:47 71 03/29/25 09:47 66 121/67 03/29/25 09:42 65 99 03/29/25 09:37 69 98 03/29/25 09:33 81 124/87 03/29/25 09:32 85 97 03/29/25 09:30 18 03/29/25 09:30 98.2 F 18 03/29/25 09:27 58 L 96 03/29/25 09:22 62 97 03/29/25 09:17 96 03/29/25 09:17 62 03/29/25 09:17 61 145/74 H 03/29/25 09:12 63 96 03/29/25 09:07 66 98 03/29/25 09:02 64 161/82 H 97 03/29/25 09:00 18 03/29/25 09:00 18 03/29/25 09:00 18 03/29/25 09:00 18 03/29/25 08:57 66 97 03/29/25 08:52 63 96 03/29/25 08:49 74 149/83 H 03/29/25 08:47 69 97 03/29/25 08:42 103 H 98 03/29/25 08:37 88 98 03/29/25 08:33 83 122/81 03/29/25 08:32 91 H 98 03/29/25 08:27 82 98 03/29/25 08:22 93 H 98 03/29/25 08:17 95 03/29/25 08:17 80 03/29/25 08:17 78 127/61 03/29/25 08:12 85 96 03/29/25 08:07 83 96 03/29/25 08:03 75 123/68 03/29/25 08:02 79 96 03/29/25 07:57 85 95 03/29/25 07:52 74 95 03/29/25 07:47 94 03/29/25 07:47 80 03/29/25 07:47 78 122/65 03/29/25 07:42 82 95 03/29/25 07:37 90 95 03/29/25 07:32 89 131/86 95 03/29/25 07:27 85 94 03/29/25 07:22 91 H 95 03/29/25 07:17 86 136/80 96 03/29/25 07:12 88 95 03/29/25 07:07 96 H 99 03/29/25 07:02 95 03/29/25 07:02 91 H 03/29/25 07:02 89 139/83 03/29/25 07:00 18 03/29/25 07:00 98.1 F 18 03/29/25 06:57 85 95 03/29/25 06:52 97 H 95 03/29/25 06:47 90 138/78 94 03/29/25 06:42 97 H 94 03/29/25 06:37 98 H 95 03/29/25 06:32 96 03/29/25 06:32 91 H 03/29/25 06:32 94 H 142/83 H 03/29/25 06:30 18 03/29/25 06:30 18 03/29/25 06:27 103 H 96 03/29/25 06:22 86 95 03/29/25 06:17 90 144/87 H 97 03/29/25 06:12 97 H 96 03/29/25 06:07 89 96 03/29/25 06:02 96 03/29/25 06:02 75 03/29/25 06:02 74 159/81 H 03/29/25 05:57 83 96 03/29/25 05:52 96 H 96 03/29/25 05:47 101 H 143/76 H 96 03/29/25 05:42 66 95 03/29/25 05:37 70 96 03/29/25 05:32 97 03/29/25 05:32 89 03/29/25 05:32 86 151/88 H 03/29/25 05:30 18 03/29/25 05:30 18 03/29/25 05:27 73 95 03/29/25 05:22 69 96 03/29/25 05:18 68 161/80 H 03/29/25 05:17 69 96 03/29/25 05:12 90 97 03/29/25 05:07 73 97 03/29/25 05:02 68 98 03/29/25 05:00 18 03/29/25 05:00 18 03/29/25 04:57 73 95 03/29/25 04:52 73 96 03/29/25 04:48 70 156/84 H 03/29/25 04:47 71 98 03/29/25 04:42 79 98 03/29/25 04:37 75 98 03/29/25 04:32 90 138/71 98 03/29/25 04:30 16 03/29/25 04:30 16 03/29/25 04:27 67 93 03/29/25 04:22 62 94 03/29/25 04:17 95 03/29/25 04:17 59 L 03/29/25 04:17 63 139/71 03/29/25 04:12 65 95 03/29/25 04:07 66 95 03/29/25 04:02 78 146/75 H 96 03/29/25 03:57 76 94 03/29/25 03:52 77 98 03/29/25 03:47 96 03/29/25 03:47 72 03/29/25 03:47 75 150/79 H 03/29/25 03:42 71 96 03/29/25 03:37 65 94 03/29/25 03:32 95 03/29/25 03:32 70 03/29/25 03:32 68 156/81 H 03/29/25 03:30 98.1 F 03/29/25 03:27 94 H 97 Coding Level of Care Code None Diagnoses Encounter for induction of labor Z34.90 Chronic hypertension during , antepartum O10.919 Obesity affecting in third trimester, unspecified obesity type O99.213 Trimester: third trimester Obesity type affecting : unspecified obesity
[2025-03-29] MEDS: NURSING L&D Epidural Breakthrough Pain Update ONE (15:54)
--- NOTE | 2025-03-29 16:44 | Labor Progress Brief Note ---
Date of Service March 29, 2025 Subjective feeling some pressure Assessment & Plan (1) Encounter for induction of labor: (2) Chronic hypertension during , antepartum: (3) Obesity affecting : Trimester: third trimester Obesity type affecting : unspecified obesity Qualified Code(s): O99.213 - Obesity complicating , third trimester Plan no cx change. may need to consider inc pit max but for now will reeval cx in 2hr and go from there. fhts categ 1. Admission and Anticipated Discharge Date Admission Date: March 28, 2025 Physical Exam Constitutional: WD/WN, vitals as above Genitourinary: Manual OB Exam: + cervical dilation 8 cm, + cervical effacement 100% and + station 0 OB Exam Monitor Tracing: + external FHT monitor used, + intra-uterine pressure catheter used (mvu's inadequate. ), + category I and + normal FHT variability Results & Data Vital Signs (Past 12 Hours) Vital Signs Temp Pulse Resp BP Pulse Ox 03/29/25 16:37 99 H 94 03/29/25 16:32 91 H 96 03/29/25 16:30 90 139/80 03/29/25 16:27 93 H 99 03/29/25 16:22 91 H 99 03/29/25 16:17 92 H 98 03/29/25 16:14 101 H 133/71 03/29/25 16:12 97 H 98 03/29/25 16:07 99 H 97 03/29/25 16:02 91 H 98 03/29/25 15:59 123/66 03/29/25 15:57 91 H 98 03/29/25 15:52 89 97 03/29/25 15:47 95 H 97 03/29/25 15:45 100 H 123/62 03/29/25 15:42 89 97 03/29/25 15:37 98 H 97 03/29/25 15:32 88 97 03/29/25 15:29 103 H 143/70 H 03/29/25 15:27 91 H 95 03/29/25 15:22 111 H 94 03/29/25 15:17 119 H 94 03/29/25 15:15 18 03/29/25 15:15 98.1 F 18 03/29/25 15:14 79 146/80 H 03/29/25 15:12 74 93 03/29/25 15:07 84 94 03/29/25 15:02 75 94 03/29/25 15:00 86 18 135/89 03/29/25 14:57 79 94 03/29/25 14:52 69 94 03/29/25 14:47 78 94 03/29/25 14:42 93 H 94 03/29/25 14:37 72 142/75 H 96 03/29/25 14:34 75 159/88 H 03/29/25 14:32 92 H 100 03/29/25 14:30 18 03/29/25 14:30 18 03/29/25 14:27 71 97 03/29/25 14:22 73 96 03/29/25 14:21 68 147/84 H 03/29/25 14:17 73 99 03/29/25 14:12 73 97 03/29/25 14:07 83 99 03/29/25 14:02 99 H 100 03/29/25 14:00 18 03/29/25 14:00 18 03/29/25 13:57 76 100 03/29/25 13:52 75 98 03/29/25 13:51 76 138/69 03/29/25 13:47 74 100 03/29/25 13:42 77 96 03/29/25 13:37 74 97 03/29/25 13:32 72 97 03/29/25 13:30 16 03/29/25 13:30 16 03/29/25 13:27 72 98 03/29/25 13:22 74 97 03/29/25 13:19 72 136/65 03/29/25 13:17 90 95 03/29/25 13:12 84 98 03/29/25 13:07 79 95 03/29/25 13:02 84 97 03/29/25 13:00 18 03/29/25 13:00 98.4 F 18 03/29/25 12:57 103 H 98 03/29/25 12:52 90 96 03/29/25 12:48 90 120/73 03/29/25 12:47 87 95 03/29/25 12:42 87 96 03/29/25 12:37 91 H 96 03/29/25 12:32 91 H 129/77 97 03/29/25 12:30 16 03/29/25 12:30 16 03/29/25 12:27 81 96 03/29/25 12:22 97 H 97 03/29/25 12:18 82 135/80 03/29/25 12:17 88 98 03/29/25 12:12 73 97 03/29/25 12:07 70 96 03/29/25 12:03 74 146/78 H 03/29/25 12:02 71 99 03/29/25 12:00 18 03/29/25 12:00 18 03/29/25 11:57 81 97 03/29/25 11:52 76 96 03/29/25 11:47 78 138/79 97 03/29/25 11:42 67 98 03/29/25 11:37 70 100 03/29/25 11:32 81 139/73 97 03/29/25 11:30 20 03/29/25 11:30 20 03/29/25 11:27 68 98 03/29/25 11:22 68 100 03/29/25 11:17 76 145/81 H 100 03/29/25 11:12 71 100 03/29/25 11:07 69 100 03/29/25 11:02 100 03/29/25 11:02 80 03/29/25 11:02 86 132/73 03/29/25 11:00 18 03/29/25 11:00 98.2 F 18 03/29/25 10:57 69 100 03/29/25 10:52 80 100 03/29/25 10:47 100 03/29/25 10:47 72 03/29/25 10:47 76 125/62 03/29/25 10:42 74 100 03/29/25 10:37 71 100 03/29/25 10:33 67 126/61 03/29/25 10:32 68 100 03/29/25 10:27 70 100 03/29/25 10:22 70 100 03/29/25 10:17 70 138/67 100 03/29/25 10:12 69 99 03/29/25 10:07 63 96 03/29/25 10:03 57 L 127/59 L 03/29/25 10:02 66 98 03/29/25 09:57 64 97 03/29/25 09:52 69 97 03/29/25 09:47 98 03/29/25 09:47 71 0722/25 09:47 66 121/67 03/29/25 09:42 65 99 03/29/25 09:37 69 98 03/29/25 09:33 81 124/87 03/29/25 09:32 85 97 03/29/25 09:30 18 03/29/25 09:30 98.2 F 18 03/29/25 09:27 58 L 96 03/29/25 09:22 62 97 03/29/25 09:17 96 03/29/25 09:17 62 03/29/25 09:17 61 145/74 H 03/29/25 09:12 63 96 03/29/25 09:07 66 98 03/29/25 09:02 64 161/82 H 97 03/29/25 09:00 18 03/29/25 09:00 18 03/29/25 09:00 18 03/29/25 09:00 18 03/29/25 08:57 66 97 03/29/25 08:52 63 96 03/29/25 08:49 74 149/83 H 03/29/25 08:47 69 97 03/29/25 08:42 103 H 98 03/29/25 08:37 88 98 03/29/25 08:33 83 122/81 03/29/25 08:32 91 H 98 03/29/25 08:27 82 98 03/29/25 08:22 93 H 98 03/29/25 08:17 95 03/29/25 08:17 80 03/29/25 08:17 78 127/61 03/29/25 08:12 85 96 03/29/25 08:07 83 96 03/29/25 08:03 75 123/68 03/29/25 08:02 79 96 03/29/25 07:57 85 95 03/29/25 07:52 74 95 03/29/25 07:47 94 03/29/25 07:47 80 03/29/25 07:47 78 122/65 03/29/25 07:42 82 95 03/29/25 07:37 90 95 03/29/25 07:32 89 131/86 95 03/29/25 07:27 85 94 03/29/25 07:22 91 H 95 03/29/25 07:17 86 136/80 96 03/29/25 07:12 88 95 03/29/25 07:07 96 H 99 03/29/25 07:02 95 03/29/25 07:02 91 H 03/29/25 07:02 89 139/83 03/29/25 07:00 18 03/29/25 07:00 98.1 F 18 03/29/25 06:57 85 95 03/29/25 06:52 97 H 95 03/29/25 06:47 90 138/78 94 03/29/25 06:42 97 H 94 03/29/25 06:37 98 H 95 03/29/25 06:32 96 03/29/25 06:32 91 H 03/29/25 06:32 94 H 142/83 H 03/29/25 06:30 18 03/29/25 06:30 18 03/29/25 06:27 103 H 96 03/29/25 06:22 86 95 03/29/25 06:17 90 144/87 H 97 03/29/25 06:12 97 H 96 03/29/25 06:07 89 96 03/29/25 06:02 96 03/29/25 06:02 75 03/29/25 06:02 74 159/81 H 03/29/25 05:57 83 96 03/29/25 05:52 96 H 96 03/29/25 05:47 101 H 143/76 H 96 03/29/25 05:42 66 95 03/29/25 05:37 70 96 03/29/25 05:32 97 03/29/25 05:32 89 03/29/25 05:32 86 151/88 H 03/29/25 05:30 18 03/29/25 05:30 18 03/29/25 05:27 73 95 03/29/25 05:22 69 96 03/29/25 05:18 68 161/80 H 03/29/25 05:17 69 96 03/29/25 05:12 90 97 03/29/25 05:07 73 97 03/29/25 05:02 68 98 03/29/25 05:00 18 03/29/25 05:00 18 03/29/25 04:57 73 95 03/29/25 04:52 73 96 03/29/25 04:48 70 156/84 H 03/29/25 04:47 71 98 03/29/25 04:42 79 98 Coding Level of Care Code None Diagnoses Encounter for induction of labor Z34.90 Chronic hypertension during , antepartum O10.919 Obesity affecting in third trimester, unspecified obesity type O99.213 Trimester: third trimester Obesity type affecting : unspecified obesity
--- NOTE | 2025-03-29 17:58 | Anesthesia Procedure Note ---
Date of Service March 29, 2025 Anesthesia Epidural Re-Dose Vital Signs Temp Pulse Resp BP Pulse Ox O2 Del Method 36.7 C 93 H 18 156/93 H 96 Room Air 03/29/25 17:20 03/29/25 17:52 03/29/25 17:20 03/29/25 17:28 03/29/25 17:52 03/28/25 19:04 Notes Pain Intensity: 4 Dilatation (cm): 8.0 Effacement (%): 100 Called by nursing to evaluate epidural as the patient is having increased pain. The epidural was re-dosed with the following medications (all medications via epidural route) after negative aspiration of the epidural catheter for CSF/HEME 1.2% lidocaine and 0.2% ropivacaine 7ml After Epidural Re-Dose Mental Status: alert / awake / arousable Pain: improving with treatment Airway Patency, RR, SpO2: stable & adequate BP & HR: stable & adequate
--- NOTE | 2025-03-29 19:00 | Labor Progress Brief Note ---
Date of Service March 29, 2025 Subjective pt feeling more pressure at level of cx. she was having back pain too but that improved. Assessment & Plan (1) Encounter for induction of labor: (2) Chronic hypertension during , antepartum: (3) Obesity affecting : Trimester: third trimester Obesity type affecting : unspecified obesity Qualified Code(s): O99.213 - Obesity complicating , third trimester Plan I think we are making good progress with her labor. I suspect kee balloon migh t be reason for small thicker anterior cx and not due to presentation. I think that due to improved station. We will plan to recheck cx in 1-2hrs and hopefully be at point to begin 2nd stage. c/w pit. fhts categ 1. Admission and Anticipated Discharge Date Admission Date: March 28, 2025 Physical Exam Constitutional: WD/WN, vitals as above Genitourinary: Manual OB Exam: + cervical dilation 9 cm, + cervical effacement 100% and + station (examined on her side. ) + 1 OB Exam Monitor Tracing: + external FHT monitor used, + intra-uterine pressure catheter used (adequate mvu's most of the time. ), + category I and + normal FHT variability slightly thicker cx anterior, likely due to kee balloon. Results & Data Vital Signs (Past 12 Hours) Vital Signs Temp Pulse Resp BP Pulse Ox 03/29/25 18:52 103 H 94 03/29/25 18:47 100 H 94 03/29/25 18:43 94 H 132/66 03/29/25 18:42 100 H 94 03/29/25 18:37 104 H 94 03/29/25 18:32 97 H 93 03/29/25 18:28 95 H 136/65 03/29/25 18:27 98 H 94 03/29/25 18:22 95 H 93 03/29/25 18:17 96 H 94 03/29/25 18:15 96 H 133/67 03/29/25 18:12 100 H 94 03/29/25 18:07 97 H 94 03/29/25 18:06 91 H 130/61 03/29/25 18:03 88 137/69 03/29/25 18:02 93 H 95 03/29/25 18:00 93 H 133/66 03/29/25 17:57 78 143/86 H 95 07/22/25 17:52 93 H 96 03/29/25 17:47 91 H 96 03/29/25 17:42 84 95 03/29/25 17:37 101 H 97 03/29/25 17:32 89 97 03/29/25 17:28 87 156/93 H 03/29/25 17:27 103 H 96 03/29/25 17:22 98 H 96 03/29/25 17:20 18 03/29/25 17:20 98.1 F 18 03/29/25 17:19 82 168/94 H 03/29/25 17:18 20 03/29/25 17:18 98.8 F 20 03/29/25 17:17 90 96 03/29/25 17:15 85 178/91 H 03/29/25 17:12 81 96 03/29/25 17:07 83 95 03/29/25 17:02 82 95 03/29/25 17:00 76 150/85 H 03/29/25 16:57 79 95 03/29/25 16:52 82 95 03/29/25 16:47 75 95 03/29/25 16:44 85 146/72 H 03/29/25 16:42 89 93 03/29/25 16:37 99 H 94 03/29/25 16:32 91 H 96 03/29/25 16:30 90 139/80 03/29/25 16:27 93 H 99 03/29/25 16:22 91 H 99 03/29/25 16:17 92 H 98 03/29/25 16:14 101 H 133/71 03/29/25 16:12 97 H 98 03/29/25 16:07 99 H 97 03/29/25 16:02 91 H 98 03/29/25 15:59 123/66 03/29/25 15:57 91 H 98 03/29/25 15:52 89 97 03/29/25 15:47 95 H 97 03/29/25 15:45 100 H 123/62 03/29/25 15:42 89 97 03/29/25 15:37 98 H 97 03/29/25 15:32 88 97 03/29/25 15:29 103 H 143/70 H 03/29/25 15:27 91 H 95 03/29/25 15:22 111 H 94 03/29/25 15:17 119 H 94 03/29/25 15:15 18 03/29/25 15:15 98.1 F 18 03/29/25 15:14 79 146/80 H 03/29/25 15:12 74 93 03/29/25 15:07 84 94 03/29/25 15:02 75 94 03/29/25 15:00 86 18 135/89 03/29/25 14:57 79 94 03/29/25 14:52 69 94 03/29/25 14:47 78 94 03/29/25 14:42 93 H 94 03/29/25 14:37 72 142/75 H 96 03/29/25 14:34 75 159/88 H 03/29/25 14:32 92 H 100 03/29/25 14:30 18 03/29/25 14:30 18 03/29/25 14:27 71 97 03/29/25 14:22 73 96 03/29/25 14:21 68 147/84 H 03/29/25 14:17 73 99 03/29/25 14:12 73 97 03/29/25 14:07 83 99 03/29/25 14:02 99 H 100 03/29/25 14:00 18 03/29/25 14:00 18 03/29/25 13:57 76 100 03/29/25 13:52 75 98 03/29/25 13:51 76 138/69 03/29/25 13:47 74 100 03/29/25 13:42 77 96 03/29/25 13:37 74 97 03/29/25 13:32 72 97 03/29/25 13:30 16 03/29/25 13:30 16 03/29/25 13:27 72 98 03/29/25 13:22 74 97 03/29/25 13:19 72 136/65 03/29/25 13:17 90 95 03/29/25 13:12 84 98 03/29/25 13:07 79 95 03/29/25 13:02 84 97 03/29/25 13:00 18 03/29/25 13:00 98.4 F 18 03/29/25 12:57 103 H 98 03/29/25 12:52 90 96 03/29/25 12:48 90 120/73 03/29/25 12:47 87 95 03/29/25 12:42 87 96 03/29/25 12:37 91 H 96 03/29/25 12:32 91 H 129/77 97 03/29/25 12:30 16 03/29/25 12:30 16 03/29/25 12:27 81 96 03/29/25 12:22 97 H 97 03/29/25 12:18 82 135/80 03/29/25 12:17 88 98 03/29/25 12:12 73 97 03/29/25 12:07 70 96 03/29/25 12:03 74 146/78 H 03/29/25 12:02 71 99 03/29/25 12:00 18 03/29/25 12:00 18 03/29/25 11:57 81 97 03/29/25 11:52 76 96 03/29/25 11:47 78 138/79 97 03/29/25 11:42 67 98 03/29/25 11:37 70 100 03/29/25 11:32 81 139/73 97 03/29/25 11:30 20 03/29/25 11:30 20 03/29/25 11:27 68 98 03/29/25 11:22 68 100 03/29/25 11:17 76 145/81 H 100 03/29/25 11:12 71 100 03/29/25 11:07 69 100 03/29/25 11:02 100 03/29/25 11:02 80 03/29/25 11:02 86 132/73 03/29/25 11:00 18 03/29/25 11:00 98.2 F 18 03/29/25 10:57 69 100 03/29/25 10:52 80 100 03/29/25 10:47 100 03/29/25 10:47 72 03/29/25 10:47 76 125/62 03/29/25 10:42 74 100 03/29/25 10:37 71 100 03/29/25 10:33 67 126/61 03/29/25 10:32 68 100 03/29/25 10:27 70 100 03/29/25 10:22 70 100 03/29/25 10:17 70 138/67 100 03/29/25 10:12 69 99 03/29/25 10:07 63 96 03/29/25 10:03 57 L 127/59 L 03/29/25 10:02 66 98 03/29/25 09:57 64 97 03/29/25 09:52 69 97 03/29/25 09:47 98 03/29/25 09:47 71 03/29/25 09:47 66 121/67 03/29/25 09:42 65 99 03/29/25 09:37 69 98 03/29/25 09:33 81 124/87 03/29/25 09:32 85 97 03/29/25 09:30 18 03/29/25 09:30 98.2 F 18 03/29/25 09:27 58 L 96 03/29/25 09:22 62 97 03/29/25 09:17 96 03/29/25 09:17 62 03/29/25 09:17 61 145/74 H 03/29/25 09:12 63 96 03/29/25 09:07 66 98 03/29/25 09:02 64 161/82 H 97 03/29/25 09:00 18 03/29/25 09:00 18 03/29/25 09:00 18 03/29/25 09:00 18 03/29/25 08:57 66 97 03/29/25 08:52 63 96 03/29/25 08:49 74 149/83 H 03/29/25 08:47 69 97 03/29/25 08:42 103 H 98 03/29/25 08:37 88 98 03/29/25 08:33 83 122/81 03/29/25 08:32 91 H 98 03/29/25 08:27 82 98 03/29/25 08:22 93 H 98 03/29/25 08:17 95 03/29/25 08:17 80 03/29/25 08:17 78 127/61 03/29/25 08:12 85 96 03/29/25 08:07 83 96 03/29/25 08:03 75 123/68 03/29/25 08:02 79 96 03/29/25 07:57 85 95 03/29/25 07:52 74 95 03/29/25 07:47 94 03/29/25 07:47 80 03/29/25 07:47 78 122/65 03/29/25 07:42 82 95 03/29/25 07:37 90 95 03/29/25 07:32 89 131/86 95 03/29/25 07:27 85 94 03/29/25 07:22 91 H 95 03/29/25 07:17 86 136/80 96 03/29/25 07:12 88 95 03/29/25 07:07 96 H 99 03/29/25 07:02 95 03/29/25 07:02 91 H 03/29/25 07:02 89 139/83 03/29/25 07:00 18 03/29/25 07:00 98.1 F 18 Coding Level of Care Code None Diagnoses Encounter for induction of labor Z34.90 Chronic hypertension during , antepartum O10.919 Obesity affecting in third trimester, unspecified obesity type O99.213 Trimester: third trimester Obesity type affecting : unspecified obesity
--- NOTE | 2025-03-29 20:51 | Labor Progress Brief Note ---
Date of Service March 29, 2025 Subjective feeling pain in thighs with ctx. Assessment & Plan (1) Encounter for induction of labor: (2) Chronic hypertension during , antepartum: (3) Obesity affecting : Trimester: third trimester Obesity type affecting : unspecified obesity Qualified Code(s): O99.213 - Obesity complicating pregna ncy, third trimester Plan cont 2nd stage. pushing effectively. fhts categ 1. Admission and Anticipated Discharge Date Admission Date: March 28, 2025 Physical Exam Constitutional: WD/WN, vitals as above Genitourinary: Manual OB Exam: + cervical dilation (ant lip reduced. ) 10 cm, + cervical effacement 100% and + station + 2 OB Exam Monitor Tracing: + external FHT monitor used, + external uterine monitor used (q2 pit at 30), + category I and + normal FHT variability effective pushing. Results & Data Vital Signs (Past 12 Hours) Vital Signs Temp Pulse Resp BP Pulse Ox 03/29/25 20:42 112 H 99 03/29/25 20:37 137 H 100 03/29/25 20:32 123 H 100 03/29/25 20:29 105 H 150/71 H 03/29/25 20:27 109 H 100 03/29/25 20:22 116 H 100 03/29/25 20:17 132 H 100 03/29/25 20:16 16 03/29/25 20:16 16 03/29/25 20:15 116 H 135/86 03/29/25 20:12 110 H 100 03/29/25 20:07 110 H 99 03/29/25 20:02 106 H 143/81 H 99 03/29/25 20:00 16 03/29/25 20:00 16 03/29/25 19:59 104 H 186/103 H 03/29/25 19:57 110 H 100 03/29/25 19:52 114 H 98 03/29/25 19:47 122 H 96 03/29/25 19:42 124 H 98 03/29/25 19:37 120 H 97 03/29/25 19:32 109 H 96 03/29/25 19:30 107 H 16 134/80 03/29/25 19:27 109 H 95 03/29/25 19:22 105 H 96 03/29/25 19:17 111 H 95 03/29/25 19:12 101 H 96 03/29/25 19:07 100 H 96 03/29/25 19:05 99.1 F 16 03/29/25 19:02 103 H 95 03/29/25 18:58 100 H 132/65 03/29/25 18:57 93 H 95 03/29/25 18:52 103 H 94 03/29/25 18:47 100 H 94 03/29/25 18:43 94 H 132/66 03/29/25 18:42 100 H 94 03/29/25 18:37 104 H 94 03/29/25 18:32 97 H 93 03/29/25 18:28 95 H 136/65 03/29/25 18:27 98 H 94 03/29/25 18:22 95 H 93 03/29/25 18:17 96 H 94 03/29/25 18:15 96 H 133/67 03/29/25 18:12 100 H 94 03/29/25 18:07 97 H 94 03/29/25 18:06 91 H 130/61 03/29/25 18:03 88 137/69 03/29/25 18:02 93 H 95 03/29/25 18:00 93 H 133/66 03/29/25 17:57 78 143/86 H 95 03/29/25 17:52 93 H 96 03/29/25 17:47 91 H 96 03/29/25 17:42 84 95 03/29/25 17:37 101 H 97 03/29/25 17:32 89 97 03/29/25 17:28 87 156/93 H 03/29/25 17:27 103 H 96 03/29/25 17:22 98 H 96 03/29/25 17:20 18 03/29/25 17:20 98.1 F 18 03/29/25 17:19 82 168/94 H 03/29/25 17:18 20 03/29/25 17:18 98.8 F 20 03/29/25 17:17 90 96 03/29/25 17:15 85 178/91 H 03/29/25 17:12 81 96 03/29/25 17:07 83 95 03/29/25 17:02 82 95 03/29/25 17:00 76 150/85 H 03/29/25 16:57 79 95 03/29/25 16:52 82 95 03/29/25 16:47 75 95 03/29/25 16:44 85 146/72 H 03/29/25 16:42 89 93 03/29/25 16:37 99 H 94 03/29/25 16:32 91 H 96 03/29/25 16:30 90 139/80 03/29/25 16:27 93 H 99 03/29/25 16:22 91 H 99 03/29/25 16:17 92 H 98 03/29/25 16:14 101 H 133/71 03/29/25 16:12 97 H 98 03/29/25 16:07 99 H 97 03/29/25 16:02 91 H 98 03/29/25 15:59 123/66 03/29/25 15:57 91 H 98 03/29/25 15:52 89 97 03/29/25 15:47 95 H 97 03/29/25 15:45 100 H 123/62 03/29/25 15:42 89 97 03/29/25 15:37 98 H 97 03/29/25 15:32 88 97 03/29/25 15:29 103 H 143/70 H 03/29/25 15:27 91 H 95 03/29/25 15:22 111 H 94 03/29/25 15:17 119 H 94 03/29/25 15:15 18 03/29/25 15:15 98.1 F 18 03/29/25 15:14 79 146/80 H 03/29/25 15:12 74 93 03/29/25 15:07 84 94 03/29/25 15:02 75 94 03/29/25 15:00 86 18 135/89 03/29/25 14:57 79 94 03/29/25 14:52 69 94 03/29/25 14:47 78 94 03/29/25 14:42 93 H 94 03/29/25 14:37 72 142/75 H 96 03/29/25 14:34 75 159/88 H 03/29/25 14:32 92 H 100 03/29/25 14:30 18 03/29/25 14:30 18 03/29/25 14:27 71 97 03/29/25 14:22 73 96 03/29/25 14:21 68 147/84 H 03/29/25 14:17 73 99 03/29/25 14:12 73 97 03/29/25 14:07 83 99 03/29/25 14:02 99 H 100 03/29/25 14:00 18 03/29/25 14:00 18 03/29/25 13:57 76 100 03/29/25 13:52 75 98 03/29/25 13:51 76 138/69 03/29/25 13:47 74 100 03/29/25 13:42 77 96 03/29/25 13:37 74 97 03/29/25 13:32 72 97 03/29/25 13:30 16 03/29/25 13:30 16 03/29/25 13:27 72 98 03/29/25 13:22 74 97 03/29/25 13:19 72 136/65 03/29/25 13:17 90 95 03/29/25 13:12 84 98 03/29/25 13:07 79 95 03/29/25 13:02 84 97 03/29/25 13:00 18 03/29/25 13:00 98.4 F 18 03/29/25 12:57 103 H 98 03/29/25 12:52 90 96 03/29/25 12:48 90 120/73 03/29/25 12:47 87 95 03/29/25 12:42 87 96 03/29/25 12:37 91 H 96 03/29/25 12:32 91 H 129/77 97 03/29/25 12:30 16 03/29/25 12:30 16 03/29/25 12:27 81 96 03/29/25 12:22 97 H 97 03/29/25 12:18 82 135/80 03/29/25 12:17 88 98 03/29/25 12:12 73 97 03/29/25 12:07 70 96 03/29/25 12:03 74 146/78 H 03/29/25 12:02 71 99 03/29/25 12:00 18 03/29/25 12:00 18 03/29/25 11:57 81 97 03/29/25 11:52 76 96 03/29/25 11:47 78 138/79 97 03/29/25 11:42 67 98 03/29/25 11:37 70 100 03/29/25 11:32 81 139/73 97 03/29/25 11:30 20 03/29/25 11:30 20 03/29/25 11:27 68 98 03/29/25 11:22 68 100 03/29/25 11:17 76 145/81 H 100 03/29/25 11:12 71 100 03/29/25 11:07 69 100 03/29/25 11:02 100 03/29/25 11:02 80 03/29/25 11:02 86 132/73 03/29/25 11:00 18 03/29/25 11:00 98.2 F 18 03/29/25 10:57 69 100 03/29/25 10:52 80 100 03/29/25 10:47 100 03/29/25 10:47 72 03/29/25 10:47 76 125/62 03/29/25 10:42 74 100 03/29/25 10:37 71 100 03/29/25 10:33 67 126/61 03/29/25 10:32 68 100 03/29/25 10:27 70 100 03/29/25 10:22 70 100 03/29/25 10:17 70 138/67 100 03/29/25 10:12 69 99 03/29/25 10:07 63 96 03/29/25 10:03 57 L 127/59 L 03/29/25 10:02 66 98 03/29/25 09:57 64 97 03/29/25 09:52 69 97 03/29/25 09:47 98 03/29/25 09:47 71 03/29/25 09:47 66 121/67 03/29/25 09:42 65 99 03/29/25 09:37 69 98 03/29/25 09:33 81 124/87 03/29/25 09:32 85 97 03/29/25 09:30 18 03/29/25 09:30 98.2 F 18 03/29/25 09:27 58 L 96 03/29/25 09:22 62 97 03/29/25 09:17 96 03/29/25 09:17 62 03/29/25 09:17 61 145/74 H 03/29/25 09:12 63 96 03/29/25 09:07 66 98 03/29/25 09:02 64 161/82 H 97 03/29/25 09:00 18 03/29/25 09:00 18 03/29/25 09:00 18 03/29/25 09:00 18 03/29/25 08:57 66 97 03/29/25 08:52 63 96 03/29/25 08:49 74 149/83 H Coding Level of Care Code None Diagnoses Encounter for induction of labor Z34.90 Chronic hypertension during , antepartum O10.919 Obesity affecting in third trimester, unspecified obesity type O99.213 Trimester: third trimester Obesity type affecting : unspecified obesity
[2025-03-29] MEDS: fentANYL 2 MCG/ML BUPIVacaine 0.125%-NSS 100ML BAG ONE (21:03)
[2025-03-29] MEDS ORDERED: LIDOCAINE 2% MPF LOCAL 5 ML VIAL EPI PRN (21:18)
[2025-03-29] MEDS ORDERED: BUPIVACAINE 0.25% PF 30 ML VIAL EPI STA (21:18)
[2025-03-29] MEDS ORDERED: fentANYL 2 MCG/ML BUPIVacaine 0.125%-NSS 100ML BAG EPI PRN (21:18)
[2025-03-29] MEDS ORDERED: ONDANSETRON INJ 2 MG/ML 2 ML VIAL IV PRN (21:18)
[2025-03-29] MEDS ORDERED: NALOXONE HCL 1 MG in SODIUM CHLORIDE 0.9% 1,000 ML IV PRN (21:18)
[2025-03-29] MEDS ORDERED: SODIUM CHLORIDE 0.9% PF INJ 10 ML VIAL EPI PRN (21:18)
[2025-03-29] MEDS ORDERED: BUPIVACAINE 0.25% PF 30 ML VIAL EPI PRN (21:18)
[2025-03-29] MEDS ORDERED: SODIUM CHLORIDE 0.9% PF INJ 10 ML VIAL EPI STA (21:18)
[2025-03-29] MEDS ORDERED: ROPIVACAINE 0.5% PF 5 MG/ML 20 ML VIAL EPI PRN (21:18)
[2025-03-29] MEDS ORDERED: NALOXONE HCL 0.4 MG/1 ML VIAL/CARP IV PRN (21:18)
[2025-03-29] MEDS ORDERED: LIDOCAINE 2%/EPINEPHRINE 1:200,000 20 ML PF EPI STA (21:18)
--- NOTE | 2025-03-29 22:01 | Delivery Summary ---
Vaginal Delivery Summary Date of Service March 29, 2025 Vaginal Delivery Summary and 2nd Degree LAC The patient dilated to complete and pushed to deliver a viable male infant Apgars 7 and 9 via over 2nd degree perineal laceration. Mouth and nose bulb suctioned at perineum. Shoulders and body delivered with ease. Infant was vigorous and crying at . Cord clamped at 30 seconds of life and to maternal abdomen where the cord was then doubly clamped and cut. Placenta delivered spontaneously and intact, three-vessel cord. Hemostasis not achieved with dilute pitocin and uterine massage and drainage of the bladder for approximately 60 cc under sterile conditions, therefore bimanual massage performed and 1000mcg cytotec per rectum placed. Uterine tone improved. Will c/w dilute pit. Laceration repaired in layers with 3-0 vicryl. Cervix and sulci intact. QBL 449 cc. Mother and baby stable in recovery. [facility] Vaginal Delivery Charge Delivery Type Details: and 2nd Degree LAC
[2025-03-29] MEDS: OXYTOCIN 30 UNITS/NSS 30 UNITS/500 ML BAG IV PRN (22:02)
[2025-03-29] MEDS ORDERED: OXYTOCIN 30 UNITS/NSS 30 UNITS/500 ML BAG IV PRN (22:21)
[2025-03-29] MEDS ORDERED: HYDROCORTISONE ACETATE 25 MG SUPP PR PRN (22:21)
[2025-03-29] MEDS: DIPHTHER/TETAN/PERTUS Vaccine (Tdap, Adol/Adult) 0.5mL IM ONE (22:34)
[2025-03-30] MEDS: ACETAMINOPHEN 325 MG TAB PO PRN (01:04)
[2025-03-30] MEDS: IBUPROFEN 600 MG TAB PO PRN (01:04)
[2025-03-30] MEDS: BENZOCAINE 20% SPRY 85 APPLN/85 GM CAN EXT PRN (01:05)
--- NOTE | 2025-03-30 06:47 | Obstetrical Progress Note ---
Date of Service March 30, 2025 Assessment & Plan (1) examination following vaginal delivery: Plan: Jenna Verdugo is a 29 y/o post- day 1 s/p . was complicated by CHTN, pulmonary stenosis, and obesity. Fells well today. Vital signs stable Continue post- care Encourage ambulation and Pain controlled with ibuprofen Hgb stable Anticipate discharge home tomorrow, follow up with Dr. Fernandez in 6 weeks. Admission and Anticipated Discharge Date Admission Date: March 28, 2025 Anticipated date of discharge: 03/31/25 Supervising Physician Co-Signing Physician Notes Resident Physician Supervision Note: I was present with Dr. Salcedo during the history and exam. I discussed the case with the resident and agree with the findings and plan as documented in the note. Any exceptions or clarifications are listed here: stable, doing well. eating, voiding, ambulating. no pain issues. breast feeding. abd soft ff 2 down nt, ext tr edema, nt calves. ppd#1 s/p , doing well. routine care. breast, rhpos,ri. Documented By: Sera Fernandez MD, FACOG Subjective Jenna Verdugo is a 29 y/o G1P) post- day 1 s/p . was complicated by CHTN, pulmonary stenosis and obesity. Rh(+), rubella immune, GBS (-) Ambulation: ambulating normally Voiding: no voiding problems Passing Gas:: Yes Diet Tolerance:: regular diet Lochia:: Small Feeding Type:: breast feeding Current Pain Level: 4/10 There is some mild swelling of the lower extremities bilaterally, which has been present during her as reported by the patient. Resting comfortably this AM in NAD. Denies FOOTE, CP, SOB, N/V/D, LE pain. Review of Systems Review of Systems: All systems reviewed & are unremarkable except as noted in HPI & below Physical Exam Physical Exam: General: patient resting comfortably, NAD, non-toxic in appearance, AA&O x 4, answers questions appropriately. Skin: warm, dry, intact HEENT: NC/AT, anicteric sclera, conjunctiva without injection, moist mucus membranes. Heart: +S1/S2, regular, no m/r/g Lungs: equal air entry bilaterally, no rales/rhonchi/wheezes Abd: +BS, soft, NT/ND, uterine fundus firm at umbilicus Ext: mild nonpitting edema of bilateral BL. warm, no clubbing/cyanosis, Anh's neg. Neuro: nonfocal, patient AA&O x 4, speech intact, no facial droop, moving all extremities on command. Constitutional: WD/WN, vitals as above Results & Data Vital Signs (Past 12 Hours) Vital Signs Temp Pulse Pulse Resp BP BP Pulse Ox 03/30/25 04:45 37.0 C 83 16 127/92 98 03/30/25 00:45 37.2 C 89 18 136/88 97 03/30/25 00:00 16 03/29/25 23:59 85 117/77 03/29/25 23:43 85 130/57 L 03/29/25 23:29 83 126/60 03/29/25 23:14 90 133/55 L 03/29/25 22:59 82 129/61 03/29/25 22:43 39 L 126/68 03/29/25 22:29 84 135/60 03/29/25 22:20 97 H 160/65 H 03/29/25 22:00 36.7 C 16 03/29/25 21:59 98 H 73 L 03/29/25 21:54 103 H 79 L 03/29/25 21:53 93 H 82 L 03/29/25 21:52 104 H 135/59 L 03/29/25 21:49 97 H 100 03/29/25 21:44 97 H 99 03/29/25 21:42 16 03/29/25 21:42 16 03/29/25 21:39 95 H 99 03/29/25 21:34 102 H 96 03/29/25 21:30 16 03/29/25 21:30 37.2 C 16 03/29/25 21:29 99 H 98 03/29/25 21:24 104 H 97 03/29/25 21:19 104 H 97 03/29/25 21:15 16 03/29/25 21:15 16 03/29/25 21:14 92 H 147/76 H 98 03/29/25 21:09 104 H 98 03/29/25 21:02 105 H 96 03/29/25 20:59 115 H 132/63 03/29/25 20:57 134 H 96 03/29/25 20:52 112 H 98 03/29/25 20:47 130 H 100 03/29/25 20:45 16 03/29/25 20:45 16 03/29/25 20:42 112 H 99 03/29/25 20:37 137 H 100 03/29/25 20:32 123 H 100 03/29/25 20:29 105 H 150/71 H 03/29/25 20:27 109 H 100 03/29/25 20:22 116 H 100 03/29/25 20:17 132 H 100 03/29/25 20:16 16 03/29/25 20:16 16 03/29/25 20:15 116 H 135/86 03/29/25 20:12 110 H 100 03/29/25 20:07 110 H 99 03/29/25 20:02 106 H 143/81 H 99 03/29/25 20:00 16 03/29/25 20:00 16 03/29/25 19:59 104 H 186/103 H 03/29/25 19:57 110 H 100 03/29/25 19:52 114 H 98 03/29/25 19:47 122 H 96 03/29/25 19:42 124 H 98 03/29/25 19:37 120 H 97 03/29/25 19:32 109 H 96 03/29/25 19:30 107 H 16 134/80 03/29/25 19:27 109 H 95 03/29/25 19:22 105 H 96 03/29/25 19:17 111 H 95 03/29/25 19:12 101 H 96 03/29/25 19:07 100 H 96 03/29/25 19:05 37.3 C 16 03/29/25 19:02 103 H 95 03/29/25 18:58 100 H 132/65 03/29/25 18:57 93 H 95 03/29/25 18:52 103 H 94 03/29/25 18:47 100 H 94 O2 Del Method 03/30/25 04:45 Room Air 03/30/25 00:45 Room Air 03/30/25 00:00 03/29/25 23:59 03/29/25 23:43 03/29/25 23:29 03/29/25 23:14 03/29/25 22:59 03/29/25 22:43 03/29/25 22:29 03/29/25 22:20 03/29/25 22:00 03/29/25 21:59 03/29/25 21:54 03/29/25 21:53 03/29/25 21:52 03/29/25 21:49 03/29/25 21:44 03/29/25 21:42 03/29/25 21:42 03/29/25 21:39 03/29/25 21:34 03/29/25 21:30 03/29/25 21:30 03/29/25 21:29 03/29/25 21:24 03/29/25 21:19 03/29/25 21:15 03/29/25 21:15 03/29/25 21:14 03/29/25 21:09 03/29/25 21:02 03/29/25 20:59 03/29/25 20:57 03/29/25 20:52 03/29/25 20:47 03/29/25 20:45 03/29/25 20:45 03/29/25 20:42 03/29/25 20:37 03/29/25 20:32 03/29/25 20:29 03/29/25 20:27 03/29/25 20:22 03/29/25 20:17 03/29/25 20:16 03/29/25 20:16 03/29/25 20:15 03/29/25 20:12 03/29/25 20:07 03/29/25 20:02 03/29/25 20:00 03/29/25 20:00 03/29/25 19:59 03/29/25 19:57 03/29/25 19:52 03/29/25 19:47 03/29/25 19:42 03/29/25 19:37 03/29/25 19:32 03/29/25 19:30 03/29/25 19:27 03/29/25 19:22 03/29/25 19:17 03/29/25 19:12 03/29/25 19:07 03/29/25 19:05 03/29/25 19:02 03/29/25 18:58 03/29/25 18:57 03/29/25 18:52 03/29/25 18:47
[2025-03-30] MEDS: PRENATAL VITAMIN 1 TAB PO SCH (07:52)
[2025-03-30] MEDS: DOCUSATE SODIUM 100 MG CAP PO SCH (07:52)
--- NOTE | 2025-03-30 08:23 | Anesthesia Procedure Note ---
Date of Service March 30, 2025 Anesthesia Post Epidural Note Vital Signs Vital Signs: Temp Pulse Resp BP Pulse Ox O2 Del Method 36.4 C L 67 16 135/95 100 Room Air 03/30/25 07:33 03/30/25 07:33 03/30/25 07:33 03/30/25 07:33 03/30/25 07:33 03/30/25 07:33 Pain Intensity Bilateral Abdomen: Pain Intensity: 3 Notes Mental Status: alert / awake / arousable Nausea / Vomiting: adequately controlled Pain: adequately controlled Airway Patency, RR, SpO2: stable & adequate BP & HR: stable & adequate Hydration State: stable & adequate Neuraxial Anesthesia: was administered and sensory block is resolving Anesthetic Complications: no major complications apparent and Pt Satisfied with anesthetic care Epidural: Removed without complications and With tip intact
[2025-03-31 02:35] VITALS: PULSE 70; RESP 16
--- NOTE | 2025-03-31 06:09 | Obstetrical Progress Note ---
Date of Service March 31, 2025 Assessment & Plan (1) examination following vaginal delivery: Plan: Jenna Verdugo is a 29 y/o post- day 2 s/p . was complicated by CHTN, pulmonary stenosis, and obesity. Feels well today. Vital signs stable Continue post- care Encourage ambulation and Pain controlled with ibuprofen Hgb stable Discharge home today, follow up with Dr. Fernandez in 6 weeks. Admission and Anticipated Discharge Date Admission Date: March 28, 2025 Anticipated date of discharge: 03/31/25 Supervising Physician Co-Signing Physician Notes Resident Physician Supervision Note: I was present with Dr. Salcedo during the history and exam. I discussed the case with the resident and agree with the findings and plan as documented in the note. Any exceptions or clarifications are listed here: PPD#2 doing well, DC instructions, 6w PP followup. Documented By: Cristina Camacho, DO Subjective Jenna Verdugo is a 29 y/o G1P) post- day 2 s/p . was complicated by CHTN, pulmonary stenosis and obesity. Rh(+), rubella immune, GBS (-) Ambulation: ambulating normally Voiding: no voiding problems Passing Gas:: Yes Diet Tolerance:: regular diet Lochia:: Small Feeding Type:: breast feeding Current Pain Level: 0/10 Resting comfortably this AM in NAD. Denies FOOTE, CP, SOB, N/V/D, LE pain. Review of Systems Review of Systems: All systems reviewed & are unremarkable except as noted in HPI & below Physical Exam Physical Exam: General: patient resting comfortably, NAD, non-toxic in appearance, AA&O x 4, answers questions appropriately. Skin: warm, dry, intact HEENT: NC/AT, anicteric sclera, conjunctiva without injection, moist mucus membranes. Heart: +S1/S2, regular, no m/r/g Lungs: equal air entry bilaterally, no rales/rhonchi/wheezes Abd: +BS, soft, NT/ND, uterine fundus firm at umbilicus Ext: mild nonpitting edema of bilateral BL. warm, no clubbing/cyanosis, Anh's neg. Neuro: nonfocal, patient AA&O x 4, speech intact, no facial droop, moving all extremities on command. Constitutional: WD/WN, vitals as above Results & Data Vital Signs (Past 12 Hours) Vital Signs Temp Pulse Resp BP Pulse Ox O2 Del Method 03/30/25 23:50 36.7 C 70 16 118/78 98 Room Air 03/30/25 19:32 Room Air 03/30/25 19:32 36.5 C 77 18 121/81 97 Room Air
[2025-03-31 07:41] VITALS: BP 129/84; TEMP 97.9; O2SAT 99
== END 2025-03-31 15:00 | disposition home or self-care (01) | DRG 805 ==
LOC: 4S1 07:52 → 4E2 03-30 00:57